=== PATIENT | female | born 1945 | race Two or more races ===

== ENCOUNTER → 2016-08-30 | Outpatient (CLI) | payer OTHER | LOC: CIMAGING 09:18 | PROVIDERS: ATTEND Physical Medicine & Rehabilitation | DX: M79.641 Pain in right hand (principal) | CPT/HCPCS: 73140-PO ==

== ENCOUNTER 2016-10-17 11:52 | Emergency (ER) | payer OTHER ==
[2016-10-17 12:07] VITALS: TEMP 98.2
[2016-10-17] MEDS ORDERED: ONDANSETRON 4 MG/2 ML VIAL ONE (13:45)
[2016-10-17] MEDS ORDERED: ONDANSETRON 4 MG/2 ML VIAL IVP ONE (13:45)
--- NOTE | 2016-10-17 13:47 | EDPHY ---
H & P Stated Complaint: dizzy off balance x 1 week hx of prior vertigo Time Seen by Provider: 10/17/16 13:33 HPI/ROS: CHIEF COMPLAINT: Vertigo HISTORY OF PRESENT ILLNESS: The patient is a 71-year-old female with a history of benign positional vertigo. She states that she has had vertiginous symptoms this morning since she awoke. They fluctuate and are worsened by head movement or positioning. She does not feel lightheaded. She denies chest pain. She denies shortness of breath. She has not had any focal weakness or deficits. She has not taken any medications. She feels slightly nauseous but has not vomited. No recent fevers. No head injuries. She does not have any focal weakness or bowel or bladder abnormalities. No back pain. No headache. REVIEW OF SYSTEMS: Constitutional: denies: chills, fever, recent illness, recent injury EENTM: denies: blurred vision, double vision, nose congestion Respiratory: denies: cough, shortness of breath Cardiac: denies: chest pain, irregular heart rate, lightheadedness, palpitations Gastrointestinal/Abdominal: denies: abdominal pain, diarrhea, nausea, vomiting, blood streaked stools Genitourinary: denies: dysuria, frequency, hematuria, pain Musculoskeletal: denies: joint pain, muscle pain Skin: denies: lesions, rash, jaundice, bruising Neurological: See HPI, denies: headache, numbness, paresthesia, tingling, weakness Hematologic/Lymphatic: denies: blood clots, easy bleeding, easy bruising Immunologic/allergic: denies: HIV/AIDS, transplant EXAM: GENERAL: Well-appearing, well-nourished and in no acute distress. HEAD: Atraumatic, normocephalic. EYES: Nystagmus with fast be to the left, fatigues . Pupils equal round and reactive to light, extraocular movements intact, sclera anicteric, conjunctiva are normal. ENT: TMs normal, nares patent, oropharynx clear without exudates. Moist mucous membranes. NECK: Normal range of motion, supple without lymphadenopathy or JVD. LUNGS: Breath sounds clear to auscultation bilaterally and equal. No wheezes rales or rhonchi. HEART: Regular rate and rhythm without murmurs, rubs or gallops. ABDOMEN: Soft, nontender, normoactive bowel sounds. No guarding, no rebound. No masses appreciated. BACK: No CVA tenderness, no spinal tenderness, step-offs or deformities EXTREMITIES: Normal range of motion, no pitting or edema. No clubbing or cyanosis. NEUROLOGICAL: Cranial nerves II through XII grossly intact. Normal speech, normal gait. 5/5 strength, normal movement in all extremities, normal sensation , normal reflexes, normal cerebellar exam PSYCH: Normal mood, normal affect. SKIN: Warm, dry, normal turgor, no visible rashes or lesions. Source: Patient Exam Limitations: No limitations - Personal History Current Tetanus/Diphtheria Vaccine: Yes - Medical/Surgical History Hx Asthma: No Hx Chronic Respiratory Disease: No Hx Diabetes: No Hx Cardiac Disease: No Hx Renal Disease: No Hx Cirrhosis: No Hx Alcoholism: No Hx HIV/AIDS: No Hx Splenectomy or Spleen Trauma: No Other PMH: tubal ligation; R rotator cuff sx; Left knee sx; Left wrist sx/ VERTIGO - Family History Significant Family History: No pertinent family hx - Social History Smoking Status: Never smoked Alcohol Use: Sober Drug Use: None Constitutional: Initial Vital Signs Temperature (C) 36.8 C 10/17/16 12:05 Heart Rate 82 10/17/16 12:05 Respiratory Rate 18 10/17/16 12:05 Blood Pressure 140/83 H 10/17/16 12:05 O2 Sat (%) 96 10/17/16 12:05 O2 Delivery Mode Room Air Allergies/Adverse Reactions: No Allergies [NKDA] Allergy (Verified 10/17/16 12:09) Home Medications: Medication Instructions Recorded Lisinopril 08/14/15 Meclizine HCl [Meclizine HCl 25 mg 25 mg PO TID PRN #20 tab 08/14/15 (RX,OTC)] Ondansetron Odt [Zofran Odt] 4 mg PO Q6 PRN #10 tab 08/14/15 Meclizine HCl [Meclizine HCl 25 mg 25 mg PO TID PRN #14 tab 10/17/16 (RX,OTC)] Medical Decision Making ED Course/Re-evaluation: 2:05 p.m. we completed the Uriel maneuver in the patient feels much better. She was pretreated with Zofran. I will also give her meclizine. She is asking for this is a prescription as well as a note for work. She feels much better and wishes to go home. 2:45 p.m. the patient is feeling completely better and is eager to go home. She is asking for a note for work . Differential Diagnosis: Partial list of the Differential diagnosis considered include but were not limited to; benign positional vertigo, arrhythmia, TIA and although unlikely based on the history and physical exam, I also considered CVA, aneurysm, infection, otitis. I discussed these differential diagnoses and the plan with the patient as well as the usual and expected course. The patient understands that the diagnosis is provisional and that in medicine we are not always correct and that further workup is often warranted. Usual and customary warnings were given. All of the patient's questions were answered. The patient was instructed to return to the emergency department should the symptoms at all worsen or return, otherwise to followup with the physician as we discussed. - Data Points Medications Given: Discontinued Medications Meclizine HCl (Meclizine Hcl) 50 mg PO EDNOW ONE Stop: 10/17/16 14:13 Last Admin: 10/17/16 14:49 Dose: 50 mg Ondansetron HCl (Zofran) 4 mg IVP EDNOW ONE Stop: 10/17/16 13:46 Last Admin: 10/17/16 13:51 Dose: 4 mg Departure - Departure Disposition: Home, Routine, Self-Care Clinical Impression: Benign paroxysmal positional vertigo Qualifiers: Laterality: left Qualified Code(s): H81.12 - Benign paroxysmal vertigo, left ear Condition: Fair Instructions: Benign Paroxysmal Positional Vertigo (ED) Referrals: Kira Lozano MD [Primary Care Provider] - As per Instructions Stand Alone Forms: Work Excuse Prescriptions: Meclizine HCl [Meclizine HCl 25 mg (RX,OTC)] 25 mg PO TID PRN #14 tab PRN Reason: Dizziness
[2016-10-17] MEDS ORDERED: MECLIZINE HCL 25 MG TAB PO ONE (14:12)
[2016-10-17 15:05] VITALS: BP 127/81; PULSE 68; RESP 16; O2SAT 95
== END 2016-10-17 15:12 | disposition home or self-care (01) ==
DX: H81.12 Benign paroxysmal vertigo, left ear (principal)
CPT/HCPCS: 96374; 99284; J2405

== ENCOUNTER → 2017-05-03 | Outpatient (CLI) | payer OTHER | LOC: FIMAGING 09:09 | PROVIDERS: ATTEND Internal Medicine | DX: Z12.31 Encounter for screening mammogram for malignant neoplasm of breast (principal) ==

== ENCOUNTER 2017-05-25 08:14 | Day surgery (SDC) | payer OTHER ==
[2017-05-25] MEDS ORDERED: LR 1,000 ML IV ONE (08:28)
[2017-05-25] MEDS ORDERED: LIDOCAINE 1% 2 ML INJ ID PRN (08:52)
--- NOTE | 2017-05-25 09:23 | PDANEPAE ---
ANE History of Present Illness screening colonoscopy ANE Past Medical History - Cardiovascular History Hx Hypertension: Yes Hx Arrhythmias: No Hx Chest Pain: No Hx Coronary Artery / Peripheral Vascular Disease: No Hx CHF / Valvular Disease: No Hx Palpitations: No - Pulmonary History Hx COPD: No Hx Asthma/Reactive Airway Disease: No Hx Recent Upper Respiratory Infection: No Hx Oxygen in Use at Home: No Hx Sleep Apnea: Yes Sleep Apnea Screening Result - Last Documented: Positive - Neurologic History Hx Cerebrovascular Accident: No Hx Seizures: No Hx Dementia: No - Endocrine History Hx Diabetes: No Obesity: moderate - Renal History Hx Renal Disorders: No - Liver History Hx Hepatic Disorders: No - Neurological & Psychiatric Hx Hx Neurological and Psychiatric Disorders: No - Cancer History Hx Cancer: No - Congenital Disorder History Hx Congenital Disorders: No - GI History Hx Gastrointestinal Disorders: No - Other Health History Other Health History: VERTIGO IN PAST DUE TO MIDDLE EAR PROBLEM - Chronic Pain History Chronic Pain: No - Surgical History Prior Surgeries: WRIST L SURG. RTC REPAIR R. MENISCUS L KNEE ANE Review of Systems Review of Systems: - Exercise capacity METS (RN): 4 METS ANE Patient History - Allergies Allergies/Adverse Reactions: No Allergies [NKDA] Allergy (Verified 10/17/16 12:09) - Home Medications Home Medications: Lisinopril 08/14/15 [Last Taken Unknown] Herbals/Supplements -Info Only 05/24/17 [Last Taken Unknown] - NPO status NPO Since - Liquids (Date): 05/24/17 NPO Since - Liquids (Time): 21:30 NPO Since - Solids (Date): 05/24/17 NPO Since - Solids (Time): 09:00 - Anes Hx Anes Hx: post operative nausea and vomiting - Smoking Hx Smoking Status: Never smoked - Alcohol Use Alcohol Use: None - Family Anes Hx Family Anes Hx: none Family Hx Anesthesia Complications: NEG ANE Labs/Vital Signs - Vital Signs Blood Pressure: 140/93 Heart Rate: 81 Respiratory Rate: 20 O2 Sat (%): 96 Height: 156.21 cm Weight: 115.666 kg ANE Physical Exam - Airway Neck exam: FROM Mallampati Score: Class 3 Mouth exam: normal dental/mouth exam - Pulmonary Pulmonary: no respiratory distress, clear to auscultation - Cardiovascular Cardiovascular: regular rate and rhythym, no murmur, rub, or gallop - ASA Status ASA Status: III ANE Anesthesia Plan Anesthesia Plan: GA with mask Total IV Anesthesia: Yes
[2017-05-25] MEDS ORDERED: PROPOFOL/EMULSION 500 MG/50 ML BOTTLE IV ONE (09:41)
--- NOTE | 2017-05-25 09:52 | PDGENHP ---
History & Physical Chief Complaint: screening History of Present Illness: screning Pertinent Past, Social, Family History: no tobacco. no alcohol. Fhx - no cc no polyps Relevant Physical Exam: a+ox3. CTA. S1S2. +BS, soft nt Cardiorespiratory Assessment: class 3
[2017-05-25] MEDS ORDERED: LIDOCAINE 2% 100 MG/5 ML SYR ONE (09:55)
--- NOTE | 2017-05-25 10:22 | POSTOPPROG ---
Post Op Note Date of Operation: 05/25/17 Surgeon: George Love Anesthesia: Other (Specify) (Iv general) Pre-op Diagnosis: screening Post-op Diagnosis: few small polyps - ascendnig transverse rectum - removed with cold bx Indication: screening Procedure: colon wtih bx Findings: 3 small polyps approx 2-3 mm removed with cold bx Inf/Abcess present in the surg proc area at time of surgery?: No EBL: Minimal (few ml from bx) Total fluids administered: 400ml LR Complications: none immediate
[2017-05-25] MEDS ORDERED: NALOXONE HCL 0.4 MG/ML INJ IVP PRN (10:34)
--- NOTE | 2017-05-25 10:36 | POSTANESTH ---
Post Anesthetic Evaluation Cardiovascular Status: Normal, Stable, Similar to Pre-Op Cond Respiratory Status: Normal, Stable, Similar to Pre-op Cond. Level of Consciousness/Mental Status: Can Participate in Eval, Alert and Oriented Pain Control: Adequate, Prn Tx Ordered Nausea/Vomiting Control: Adequate, Prn Tx Ordered Complications Possibly Related to Anesthesia: None Noted
--- NOTE | 2017-05-25 10:39 | GIREPORT ---
[facility] Surgical Services - Endoscopy Department Patient Name: Maria A Porter Procedure Date: 05/25/2017 9:38 AM Patient Type: Outpatient Attending MD/ ER Physician: Marino Matt Procedure: Colonoscopy Indications: Screening for colorectal malignant neoplasm Providers: Rogerio Love MD Medicines: Total IV Anesthesia (TIVA) Complications: No immediate complications. Estimated blood loss: Minimal. Description of Procedure: After obtaining informed consent, the scope was passed under direct vis ion. Throughout the procedure, the patient's blood pressure, pulse, and oxyg en saturations were monitored continuously. The Colonoscope with irrigatio n channel was introduced through the anus and advanced to the cecum, identified by the appendiceal orifice, ileocecal valve and palpation. T he colonoscopy was technically difficult and complex due to significant lo oping and the patient's body habitus. Successful completion of the procedure was aided by using manual pressure. The patient tolerated the procedure wel l. The quality of the bowel preparation was good. Findings: The digital rectal exam findings include hemorrhoids. A 2 mm polyp was found in the ascending colon. The polyp was sessile. T he polyp was removed with a piecemeal technique using a cold biopsy forcep s. Resection and retrieval were complete. Estimated blood loss was minimal . A 3 mm polyp was found in the transverse colon. The polyp was sessile. The polyp was removed with a piecemeal technique using a cold biopsy forcep s. Resection and retrieval were complete. Estimated blood loss was minimal . A 3 mm polyp was found in the rectum. The polyp was sessile. The polyp was removed with a piecemeal technique using a cold biopsy forceps. Resecti on and retrieval were complete. Estimated blood loss was minimal. Multiple small and large-mouthed diverticula were found in the sigmoid colon, descending colon, transverse colon and ascending colon. The exam was otherwise without abnormality. Estimated Blood Loss: Estimated blood loss was minimal. Post Op Diagnosis: - Hemorrhoids found on digital rectal exam. - One 2 mm polyp in the ascending colon, removed piecemeal using a cold biopsy forceps. Resected and retrieved. - One 3 mm polyp in the transverse colon, removed piecemeal using a col d biopsy forceps. Resected and retrieved. - One 3 mm polyp in the rectum, removed piecemeal using a cold biopsy forceps. Resected and retrieved. - Diverticulosis in the sigmoid colon, in the descending colon, in the transverse colon and in the ascending colon. - The examination was otherwise normal. Recommendation: - Await pathology results. - My office will call with the pathology result with 5-7 days. If you h ave not heard from my office by -14, do not assume the pathology is kate l, please call [phone] to get the pathology results. - Repeat colonoscopy date to be determined after pending pathology resu lts are reviewed for surveillance after piecemeal polypectomy. If all three have cancer potential then the interval is 3 years. IF only or two have canc er potential then the interval is 5 years. If none have cancer potential, the interval is 10 years and at age 81 i would let pt and PCP refer back if they felt appropriate - if life expectancy is less than 7 years, then no screening procedure is recommended. - High fiber diet indefinitely. - 30-35 grams of dietary fiber per day. Can use supplemental fiber. - A high fiber diet may decrease risk of complications from diverticulo sis. There is no need to avoid seeds or nuts. - Patient has a contact number available for emergencies. The signs and symptoms of potential delayed complications were discussed with the pat ient. Return to normal activities tomorrow. Written discharge instructions we re provided to the patient. - Continue present medications. - Discharge patient to home (ambulatory). - Return to primary care physician as previously scheduled. - Thank you for allowing me to help in your patient's care. Do not hesi mcarthur to call with any questions. Attending Participation: I personally performed the entire procedure. Kate Beatty M.D Rogerio W MD Kate 05/25/2017 10:39:02 AM This report has been signed electronicallyMathew MD Kate Number of Addenda: 0 Note Initiated On: 05/25/2017 9:38 AM Total Procedure Duration Time 0 hours 18 minutes 45 seconds [email or web address]
[2017-05-25 11:14] VITALS: O2SAT 95
[2017-05-25 11:23] VITALS: RESP 17
[2017-05-25 12:10] VITALS: BP 147/77; PULSE 61; TEMP 97.5
== END 2017-05-25 12:22 | disposition home or self-care (01) ==
LOC: FSGY 08:14
PROVIDERS: ATTEND Internal Medicine Gastroenterology
PROC: 0DBL8ZX Excision of Transverse Colon, Via Natural or Artificial Opening Endoscopic, Diagnostic (ICD-10-PCS; principal; 2017-05-25 09:45)
PROC: 0DBK8ZX Excision of Ascending Colon, Via Natural or Artificial Opening Endoscopic, Diagnostic (ICD-10-PCS; principal; 2017-05-25 09:45)
PROC: 0DBP8ZX Excision of Rectum, Via Natural or Artificial Opening Endoscopic, Diagnostic (ICD-10-PCS; principal; 2017-05-25 09:45)
DX: Z12.11 Encounter for screening for malignant neoplasm of colon (principal); D12.2 Benign neoplasm of ascending colon; K62.1 Rectal polyp; K64.9 Unspecified hemorrhoids; I10 Essential (primary) hypertension; G47.33 Obstructive sleep apnea (adult) (pediatric); R73.01 Impaired fasting glucose; E66.9 Obesity, unspecified; Z68.42 Body mass index [BMI] 45.0-49.9, adult; E55.9 Vitamin D deficiency, unspecified; H81.10 Benign paroxysmal vertigo, unspecified ear
CPT/HCPCS: J2001; J2704